=== PATIENT | male | born 1995 | race Caucasian/White ===

== ENCOUNTER 2018-02-15 22:36 | Emergency (ER) | payer OTHER ==
[~2018-02-15] VITALS: Ht 152.4 cm; Wt 56.7 kg
[2018-02-16] MEDS ORDERED: MEDROLDOSEPACK PO (00:06)
[2018-02-16] MEDS ORDERED: HYDROCORTISONE120 M1 TOP (00:06)
[2018-02-16] MEDS ORDERED: HYDROXYZINE HCL25 M1 PO (00:06)
[2018-02-16 00:14] VITALS: BP 113/61
== END 2018-02-16 00:15 | disposition home or self-care (01) ==
LOC: M.ERS 22:36
DX: L50.9 Urticaria, unspecified (principal); Z90.49 Acquired absence of other specified parts of digestive tract

== ENCOUNTER 2018-08-29 23:52 | Emergency (ER) | payer OTHER ==
[~2018-08-29] VITALS: Ht 152.4 cm; Wt 56.7 kg
[~2018-08-29 23:52] MED LIST: HYDROCORTISONE120 M1 TOP; HYDROXYZINE HCL25 M1 PO; MEDROLDOSEPACK PO
[2018-08-30 00:07] VITALS: BP 120/47
[2018-08-30] MEDS ORDERED: PREDNISONE50 MG PO (00:51)
== END 2018-08-30 01:06 | disposition home or self-care (01) ==
LOC: M.ERS 23:52
DX: L50.9 Urticaria, unspecified (principal); Z90.49 Acquired absence of other specified parts of digestive tract